=== PATIENT | male | born 1940 | race Caucasian/White ===

== ENCOUNTER 2017-03-05 14:32 | Inpatient (IN) ==
[2017-03-05] MEDS ORDERED: LABETALOL IV ONE (14:56)
[2017-03-05] MEDS ORDERED: ASPIRIN PO STA (14:56)
[2017-03-05 15:11] LABS: MANUAL DIFF NEEDED? NO
[2017-03-05 15:23] LABS: CALCIUM 8.9 mg/dL (8.8-10.2); MAGNESIUM 1.2 mg/dL (1.5-2.7); POTASSIUM 4.6 mmol/L (3.5-5.1); TOTAL BILIRUBIN 0.6 mg/dL (0.20-1.00); TOTAL PROTEIN 7.1 g/dL (6.3-8.3)
[2017-03-05 15:33] LABS: BASO% 0.4 % (0.0-0.8); EOS# 0.14 X1000 (0.0-0.7); EOS% 1.5 % (0.0-10.0); HEMATOCRIT 41.7 % (42.0-52.0); IMM GRAN# 0.03 X1000 (0.0-0.04); IMM GRAN% 0.3 % (0.0-0.5); LYMPH# 0.81 X1000 (1.2-3.4); LYMPH% 8.4 % (20.5-51.1); MCV 83.4 FL (81-99); MONO% 9.3 % (1.7-9.3); NEUT% 80.1 % (42.2-75.2); PLT 253 X1000 (130-400)
[2017-03-05 15:59] LABS: INR 1.01 (0.86-1.15); PROTIME 13.6 Seconds (12.1-15.5); PTT PL 30.9 Seconds (22.6-43.9)
[2017-03-05] MEDS ORDERED: APRESOLINE IV ONE (16:08)
--- NOTE | 2017-03-05 16:21 | EKG Report ---
Test Performed on : 03/05/2017 2:33:44 PM Test Reason : CHEST PAIN Blood Pressure : / mmHG Vent. Rate : 096 BPM Atrial Rate : 096 BPM P-R Int : 202 ms QRS Dur : 096 ms QT Int : 360 ms P-R-T Axes : 036 -67 084 degrees QTc Int : 454 ms Normal sinus rhythm. Left axis deviation Nonspecific T wave abnormality Abnormal ECG When compared with ECG of 27-FEB-2012 12:21, IN interval has decreased QRS axis shifted left Unconfirmed Result
--- NOTE | 2017-03-05 16:33 | Diag Imaging Result Document ---
PROCEDURE NAME: CHEST-2 VIEWS - 03/05/2017 FRONTAL AND LATERAL CHEST, 2 VIEWS: FINDINGS: No comparison films. The lungs are hyperexpanded. Mild increased AP diameter to the chest. The pulmonary vessels are small. The heart is not enlarged. Mild increased markings in the right base. No consolidation. IMPRESSION: 1. Emphysema. 2. Atelectasis or fibrosis on the right.
--- NOTE | 2017-03-05 16:58 | PROVIDER DOCUMENTATION ---
This chart was entered by Faizan Armendariz Scribe, acting as scribe for Abbie Cole MD. HPI-Chest Pain - General Chief Complaint: Chest Pain Stated Complaint: CHEST PAIN Time Seen by Provider: 03/05/17 14:47 Source: patient Allergies/Adverse Reactions: Patient Allergies Allergy/AdvReac Type Severity Reaction Status Date / Time No Known Allergies Allergy Verified 03/05/17 14:41 Home Medications: Home Medication List Medication Instructions Recorded Confirmed Last Taken Type Aspirin 81 mg PO DAILY 04/30/14 03/05/17 Unknown History Carvedilol [Coreg] 6.5 mg PO BID 04/30/14 03/05/17 Unknown History Isosorbide Mononitrate 60 mg PO DAILY 04/30/14 03/05/17 Unknown History Losartan/Hydrochlorothiazide 100 mg PO DAILY 04/30/14 03/05/17 Unknown History [Losartan-Hctz 100-25 mg Tab] Rosuvastatin Calcium [Crestor] 10 mg PO DAILY 04/30/14 03/05/17 Unknown History Sitagliptin Phosphate [Januvia] 100 mg PO DAILY 04/30/14 03/05/17 Unknown History Clonidine HCl [Clonidine HCl] 0.2 mg PO BID 03/05/17 03/05/17 Unknown History Clopidogrel Bisulfate [Clopidogrel] 75 mg PO HS 03/05/17 03/05/17 Unknown History Metformin [Glucophage] 1,000 mg PO BID 03/05/17 03/05/17 Unknown History - History of Present Illness-CP Nature of Presenting Problem: patient is a 76 y/o M that presents to the Er with substernal chest pain. describes it as dull pain. Symptoms began last pm. patient has shortness of breath but no n/v, back pain, or palpitations. history of CAD,HTN, and type 2 diabetes. patient had last cardiac cath last april in which his Circumflex was stented. Location: reports: substernal Chest Pain Radiation: reports: no radiation Quality of Pain: reports: dull Severity in ED: mild, moderate Onset/Duration: abrupt, last night Timing: still present, improving, constant Context/Activities at Onset: reports: none Modifying Factors: improves with: nothing Associated Symptoms: reports: shortness of breath, weakness. denies: back pain , edema, fever/chills, nausea, vomiting Nitro Today/Relief: no nitro taken today Aspirin Treatment Today: 325 mg x 1, provided by ED Prior Chest Pain/Cardiac Workup: reports: cardiac cath (1 year ago, stent to circumflex) Similar Symptoms Previously?: Yes Recently Seen Here or By Another Healthcare Provider: No Review of Systems - Adult - REVIEW OF SYSTEMS - ADULT Constitutional: denies: chills, fever Eyes: reports: no symptoms reported Ears, Nose, Mouth & Throat: reports: no symptoms reported Cardiovascular: reports: chest pain. denies: orthopnea, palpitations, syncope Respiratory: reports: shortness of breath. denies: cough, wheezing Gastrointestinal: denies: abdominal pain, nausea, vomiting Genitourinary: reports: no symptoms reported Musculoskeletal: reports: back pain, muscle weakness. denies: joint pain Integumentary: reports: no symptoms reported Neurological: reports: no symptoms reported Psychiatric: reports: no symptoms reported Endocrine: reports: no symptoms reported Hematologic/Lymphatic: reports: no symptoms reported Allergic/Immunologic: reports: no symptoms reported All Other Systems: Reviewed and Negative Past History - Adult - PAST MEDICAL HISTORY-ADULT Review of Records: reports: Old Records Reviewed, Nursing Assessment Review, Medications Reviewed Cardiovascular: reports: CAD, HTN Neurological: reports: CVA Endocrine/Immune: reports: Diabetes Diabetes Type: Type 2 Diabetes controlled by:: PO Meds - PRIOR SURGERIES/PROCEDURES Surgical/Procedure History: reports: cardiac stent, hernia repair - IMMUNIZATION STATUS Childhood Immunizations: See Nurse Assessment Flu Vaccine: See Nurse Assessment - FAMILY HISTORY Family History: reviewed, not pertinent - SOCIAL HISTORY Smoking: quit greater than 1 year, cigarettes Alcohol Use Frequency: occasionally Living Situation: family Physical Exam-General - PHYSICAL EXAM-ADULT Initial Vital Signs Reviewed: Yes - CONSTITUTIONAL General Appearance: alert, no apparent distress - EYES Eyes: PERRL/EOMI, pink conjunctivae - HEAD, EARS, NOSE, MOUTH & THROAT HENMT: normocephalic/atraumatic, moist mucous membranes, normal ENT inspection - NECK Neck: full range of motion, normal inspection - RESPIRATORY Respiratory: chest non-tender, lungs clear, normal breath sounds, no respiratory distress, no accessory muscle use - CARDIOVASCULAR Cardiovascular: regular rate, rhythm, no edema, no murmur - GASTROINTESTINAL (ABDOMEN) Abdominal Exam: normal bowel sounds, non tender, soft, no organomegaly, no pulsatile mass - MUSCULOSKELETAL Extremity: normal range of motion, normal inspection, no pedal edema, no calf tenderness - SKIN Integumentary: normal color, warm/dry - NEUROLOGIC Neurologic: grossly normal, no motor/sensory deficits - PSYCHIATRIC Psych/Mental Status: normal mood/affect, normal thought content, normal thought process, oriented x 3 Progress - PLAN OF CARE/RESULTS Progress/Plan/Lab Results: Vital Signs - 8 hr 03/05/17 14:37 03/05/17 15:00 03/05/17 15:15 Temperature 97.5 F L Pulse Rate 98 H 89 93 H Respiratory Rate 20 21 17 Blood Pressure 231/112 148/78 182/94 O2 Sat by Pulse Oximetry 96 92 L 92 L 03/05/17 15:30 03/05/17 15:45 Temperature Pulse Rate 92 H 79 Respiratory Rate 19 20 Blood Pressure 208/102 193/85 O2 Sat by Pulse Oximetry 91 L 90 L Laboratory Results - last 24 hr 03/05/17 03/05/17 03/05/17 14:30 14:30 14:30 WBC RBC Hgb Hct MCV MCH MCHC RDW Std Deviation Plt Count MPV Immature Gran % (Auto) Neut % (Auto) Lymph % (Auto) [place] % (Auto) Eos % (Auto) Baso % (Auto) Immature Gran # (Auto) Neut # (Auto) Lymph # (Auto) [place] # (Auto) Eos # (Auto) Baso # (Auto) PT INR APTT (Factor Assay) D-Dimer Sodium 129 L Potassium 4.6 Chloride 94 L Carbon Dioxide 19 L Anion Gap 16 BUN 24 H Creatinine 1.8 H Estimated GFR/1.73 m2 37 BUN/Creatinine Ratio 13 Glucose 202 H Calculated Osmolality 269 Calcium 8.9 Magnesium 1.2 L Total Bilirubin 0.60 AST 12 ALT 12 Alkaline Phosphatase 99 Creatine Kinase 55 Troponin T 0.031 Vhv-E-Sheqiuzgjct Pept 966 H Total Protein 7.1 Albumin 4.0 Globulin 3.0 Albumin/Globulin Ratio 1.0 03/05/17 03/05/17 14:30 14:30 WBC 9.65 RBC 5.00 Hgb 15.0 Hct 41.7 L MCV 83.4 MCH 30.0 MCHC 36.0 RDW Std Deviation 12.8 Plt Count 253 MPV 10.0 Immature Gran % (Auto) 0.3 Neut % (Auto) 80.1 H Lymph % (Auto) 8.4 L [place] % (Auto) 9.3 Eos % (Auto) 1.5 Baso % (Auto) 0.4 Immature Gran # (Auto) 0.03 Neut # (Auto) 7.73 H Lymph # (Auto) 0.81 L [place] # (Auto) 0.90 H Eos # (Auto) 0.14 Baso # (Auto) 0.04 PT 13.6 INR 1.01 APTT (Factor Assay) 30.9 D-Dimer 0.86 H Sodium Potassium Chloride Carbon Dioxide Anion Gap BUN Creatinine Estimated GFR/1.73 m2 BUN/Creatinine Ratio Glucose Calculated Osmolality Calcium Magnesium Total Bilirubin AST ALT Alkaline Phosphatase Creatine Kinase Troponin T Lxr-A-Banjvoiygyv Pept Total Protein Albumin Globulin Albumin/Globulin Ratio Orders Category Date Time Status Cardiac Monitoring DIRECTED Care 03/05/17 14:56 Active Saline Loc NOW Care 03/05/17 14:56 Active CHEST-2 VIEWS [RAD] Stat Exams 03/05/17 14:56 Completed CBC WITH ELECTRONIC DIFF [HEME] Stat Lab 03/05/17 14:30 Completed CK PROFILE [SP CHEM] Stat Lab 03/05/17 14:30 Completed COMPREHENSIVE METABOLIC PANEL [CHEM] Stat Lab 03/05/17 14:[address] D-DIMER [address] [COAG] Stat Lab 03/05/17 14:30 Completed MAGNESIUM [CHEM] Stat Lab 03/05/17 14:30 Completed PRO B-NATRIURETIC PEPTIDE Stat Lab 03/05/17 14:30 Completed PROTIME WITH INR PL [COAG] Stat Lab 03/05/17 14:[address] [COAG] Stat Lab 03/05/17 14:30 Completed TROPONIN T Stat Lab 03/05/17 14:30 Completed Aspirin Med 03/05/17 14:56 Discontinued 325 mg PO STAT STA Cardene 0.1 mg/ml Drip ([facility]) Med 03/05/17 17:00 Ordered Nicardipine 20 mg/Ns [Cardene 20 mg/Ns] 20 mg in 200 ml IV As Directed Hydralazine [Apresoline] Med 03/05/17 16:08 Discontinued 20 mg IV NOW ONE Labetalol Med 03/05/17 14:56 Discontinued 20 mg IV NOW ONE EKG [EKG] Stat Ther 03/05/17 14:56 Draft Result Diagrams: 03/05/17 14:30 03/05/17 14:30 - EKG 1 Time of EKG reading by physician:: 14:33 EKG Read and Signed by:: Abbie Cole EKG Interpretation (*Must complete 3 of following elements*): Abnormal Rate: 96 Rhythm: NSR [place]: left QRS: normal NC Interval: normal ST Wave: non-specific ST changes - XRAY 1 XRAY Study: Chest Impression: Abnormal XRAY Interpretation: emphysema, atelectasis or fibrosis in the R base - CONSULTS/PCP/HOSPITALIST Notification #1 *Consult/PCP/Hospitalist*: Time Discussed: 16:25 Consult Disposition: Admit Departure - Departure Time of Disposition Decision: 16:27 DIAGNOSIS: Chest pain in adult, Hypertensive emergency Disposition: ADMITTED INPATIENT 09 Certified Medical Emergency: Emergent Condition: Stable Referrals and Follow-Ups: Ricky Coughlin MD [Primary Care Provider] - - Critical Care Note This patient required my direct & personal management of CC.: Yes Total Time (mins): 45 Critical Care Statement: This patient required my direct personal management to treat or rule out processes, the absence of which, could potentiallly result in sudden, clinically significant life or limb threatening deterioration. This chart was documented by the indicated scribe, (Faizan Armendariz, Scribe) and accurately reflects the services I performed and decisions made by me, Abbie Cole MD, as attested by the provider's signature.
[2017-03-05] MEDS ORDERED: MAGNESIUM SULFATE 2 GM/S.W.I. 2 GM/50 ML IVPB IV ONE (18:17)
[2017-03-05] MEDS ORDERED: LABETALOL IV PRN (18:23)
[2017-03-05] MEDS: NS 1,000 ML IV SCH (19:45)
[2017-03-05] MEDS: SODIUM CHLORIDE 0.9% INJ SCH (19:52)
[2017-03-05] MEDS: PROTONIX IV SCH (19:52)
[2017-03-05] MEDS: CRESTOR PO SCH (20:28)
[2017-03-05] MEDS: HUMALOG DOSE (PARKWAY) SUBQ SCH (20:28)
[2017-03-05] MEDS: PLAVIX PO SCH (20:29)
[2017-03-05] MEDS: CARDENE 20 MG/NS 20 MG/200 ML PIGGYBACK IV SCH (20:36)
--- NOTE | 2017-03-05 21:54 | HISTORY AND PHYSICAL ---
PRIMARY CARE PHYSICIAN: Ricky Coughlin MD PILOT BOAT OPERATOR: Dr. Massey. CHIEF COMPLAINT: Chest pain and elevated blood pressure. HISTORY OF PRESENT ILLNESS: A 76-year-old white male with known [id number] or resistant hypertension, who presented to the emergency room with 6/10 substernal chest pain, greater than 24 hours, described as dull, associated with mild shortness of breath. The patient denies nausea, vomiting, back pain, palpitations, or increased heart rate. Does note blood pressure is normally in the 150s. Evaluation in the ER, blood pressure was greater than 200 systolic and status post that the patient was admitted for further evaluation. Of note, the patient had been seen by Dr. Massey, his golf technician, with some recent medications changes, of which he states causes blood pressure to be worse. ALLERGIES: No known drug allergies. MEDICATIONS: Include aspirin 81 mg daily, Coreg 6.5 mg p.o. b.i.d., 60 mg p.o. daily, losartan/hydrochlorothiazide 100/25, Crestor 80 mg p.o. daily, Januvia 100 mg p.o. daily, clonidine 0.2 mg p.o. b.i.d., and metformin 1000 mg p.o. b.i.d. REVIEW OF SYSTEMS: Twelve point review of systems pertinent for items mentioned in the HPI. Patient denies abdominal pain, nausea, vomiting, cough, wheezing, orthopnea, syncope or edema. SURGICAL HISTORY: The patient had a cardiac stent placed and hernia repair both remotely. FAMILY HISTORY: Reviewed and not pertinent. SOCIAL HISTORY: The patient is a historical smoker, stating that he quit greater than 1 year ago. Does use alcohol on an infrequent basis currently. Living at home with family and has a contract engineer available. PHYSICAL EXAMINATION: VITAL SIGNS: Shows temperature 97.5 degrees, pulse 98, respirations 17, blood pressure 231/112. O2 saturation of 92% on room air. Recheck of blood pressure was down to 182/94. GENERAL: Plethoric, short of breath, elderly male, mild to moderate distress. CARDIOVASCULAR: Shows bounding pulses at a rate of approximately 94. NECK: No jugular venous distention noted. LUNGS: Clear to auscultation anteriorly. No consolidations. Mild rhonchi in the bilateral bases. ABDOMEN: Soft, nontender, nondistended. Bowel sounds are positive times all 4 quadrants. No hepatomegaly noted. EXTREMITIES: Lower extremities no cyanosis, clubbing, or edema noted. Abnormal pulses noted in the lower extremities. HEENT: Shows clear oropharynx. Slightly injected sclerae bilaterally. Nares are patent with no swelling noted. PSYCH: Normal mood and affect, appropriate. Alert and oriented x3. LABS: WBC is 9.65, with an hemoglobin and hematocrit of 15 and 41, respectively. MCV of 83. Platelets of 253,000. Neutrophils of 80.1, lymphocytes at 8.4. PT/INR within normal limits. D- dimer slightly elevated at 0.86. Sodium 129, with a chloride of 94. BUN of 24, creatinine 1.8. Glucose 202. Magnesium 1.2. B-type natriuretic peptide of 996. Albumin 4.0. Imaging shows chest x-ray performed 03/04/2017; emphysema, atelectasis, and fibrosis on the right; otherwise, within normal limits. Electrocardiogram performed shows nonspecific ST wave abnormality and left axis deviation. ASSESSMENT AND PLAN: A 76-year-old male with: 1. Hypertensive emergency. 2. Resistant hypertension. 3. Hypomagnesemia. 4. Hyponatremia. 5. Acute kidney injury. 6. Moderate dehydration. 7. Hyperglycemia with history of diabetes type 2. 8. Chest pain with troponin x3 negative. PLAN: The patient will be admitted to the ICU in [place]. We placed him on clonidine drip. Labs checked frequently, along with high-volume resuscitation for the fluids, in effort to correct the sodium issue. Patient's electrolytes will be repleted and the patient will be followed along the course today for further evaluation of some underlying causes of the resistant hypertension. CT of the head will be performed to rule out any issues associated with his high temperature or high pressure in a.m., along with echo and questionable CT of abdomen and pelvis if concerns for neuroendocrine tumors are present. Will continue to monitor the patient and follow daily. Will hold deep venous thrombosis prophylaxis at this time due to the increased risk of bleeding. cc: Ricky Coughlin MD
[2017-03-05] MEDS: AMBIEN PO PRN (22:40)
[2017-03-06] MEDS: CARDENE 20 MG/NS 20 MG/200 ML PIGGYBACK IV SCH (00:45)
[2017-03-06 04:58] LABS: BLOOD TYPE ARTERIAL; DRAW SITE R BRACHIAL; METHB 1.3 % (0.0-1.5); O2(CT) 19.7 mL/dL (15.0-23.0); PCO2(98.6) 38 mmHg (35-45); PO2(98.6) 65 mmHg (60-100); SAMPLE BLOOD; SAO2 95.5 % (95.0-100.0); THB 15.3 g/dL (11.5-17.4)
[2017-03-06 05:05] LABS: ALLEN TEST YES; MODALITY CANNULA
[2017-03-06 05:42] LABS: MANUAL DIFF NEEDED? NO
[2017-03-06 05:45] LABS: BASO% 0.2 % (0.0-0.8); EOS# 0.16 X1000 (0.0-0.7); HEMATOCRIT 39.4 % (42.0-52.0); HEMOGLOBIN 14.4 g/dL (14.0-18.0); IMM GRAN# 0.03 X1000 (0.0-0.04); IMM GRAN% 0.4 % (0.0-0.5); LYMPH% 9.9 % (20.5-51.1); MCH 30.2 PG (27-31); MCHC 36.5 g/dL (33-37); MCV 82.6 FL (81-99); MONO# 0.77 X1000 (0.11-0.59); MONO% 9.5 % (1.7-9.3); MPV 9.9 FL (7.4-10.4); PLT 242 X1000 (130-400); RBC 4.77 XMIL (4.7-6.1)
[2017-03-06 05:58] LABS: HEMOGLOBIN A1C 8.4 % (4.8-6.0)
[2017-03-06] MEDS: HUMALOG DOSE (PARKWAY) SUBQ SCH ×4 (06:17→21:12)
[2017-03-06 06:20] LABS: AGAP 13; ALBUMIN 3.5 g/dL (3.5-5.0); ALKALINE PHOSPHATASE 96 U/L (32-122); BUN 21 mg/dL (8-22); CALCIUM 8.3 mg/dL (8.8-10.2); CHLORIDE 97 mmol/L (98-107); COSMO 273; GOT 7 U/L (10-34); GPT 9 U/L (10-44); HDL 27 mg/dL (35-55); LDL 50 mg/dL; MAGNESIUM 2.2 mg/dL (1.5-2.7); POTASSIUM 3.5 mmol/L (3.5-5.1); SODIUM 131 mmol/L (136-145); TCO2 21 mmol/L (25-35); TOTAL PROTEIN 6.1 g/dL (6.3-8.3); TRIGLYCERIDES 153 mg/dL (39-160); VLDL 31 mg/dL
[2017-03-06] MEDS ORDERED: MAGNESIUM SULFATE 2 GM/S.W.I. 2 GM/50 ML IVPB IV ONE (06:41)
[2017-03-06] MEDS ORDERED: POTASSIUM CHLORIDE 20% LIQUID PO ONE (07:45)
--- NOTE | 2017-03-06 07:54 | PROGRESS NOTE ---
DATE: 03/06/2017 PRIMARY CARE PHYSICIAN: Dr. Ricky Coughlin. SUBJECTIVE: Overnight the patient responded well to the Cardene drip. No issues or concerns noted. Did have some difficulties going to sleep. Blood pressure came down to normalization without any need for additional IV medications. PHYSICAL EXAMINATION: Vital Signs: Temperature 98 degrees, pulse 60, respirations 14, blood pressure 139/62, O2 saturation 95% on 2 L nasal cannula. Weight unchanged. I's and O's: Primarily unmeasured. General: Alert and oriented. No acute distress. at bedside. No acute complaints. CV: Regular rate with occasional PVCs. No murmurs, gallops, or rubs. Lungs: Clear to auscultation anteriorly. Abdomen: Soft, nontender, nondistended. Bowel sounds positive. Extremities: Lower extremities show no edema and normal pulses. No longer bounding. LABS: Hemoglobin and hematocrit is 14 and 39 respectively with a normal WBC. Lymphocytes of 9.9. Platelets 242,000. PT and INR within normal limits. ABG shows a normal pH at 7.4, with a PO2 of 65, and oxyhemoglobin at 91.8. Sodium is moving toward normal at 129 to 131 with potassium of 3.5, anion gap 13. Creatinine down from 1.8 to 1.3, glucose ranging 202-232, A1c of 8.4, calcium low at 8.3, magnesium at 2.2, AST and ALT at 7 and 9. Troponin is primary within normal limits, 0.013 and 0.031. BNP down from . Total protein 6.1. Cholesterol within normal limits. TSH and free T4 within normal limits. ASSESSMENT AND PLAN: This is a 76-year-old male with: 1. Hypertensive emergency and acute kidney injury. Responding well to the treatment. Will switch to nifedipine and follow today okay to transfer to general medical floor now that the patient is off the IV drip. Labs pending regarding secondary causes of hypertension. We will continue to follow those labs. 2. Hyponatremia, likely secondary to #1. Continue to follow with IV fluid resuscitation. 3. Electrolyte disturbance. Will replete today and follow up. 4. Chest pain. Troponins are normal and patient no longer complaining of said chest pain. Likely secondary to #1. Continue current therapies. We will continue to monitor the 24 hour urines. Likely discharge Friday p.m. versus Friday a.m. cc: Ricky Coughlin MD
[2017-03-06] MEDS: NS 1,000 ML IV SCH (10:29)
[2017-03-06] MEDS: PROCARDIA PO SCH ×3 (10:29→16:07)
[2017-03-06] MEDS: POTASSIUM CHLORIDE 20% LIQUID ONE ×2 (10:35→12:00)
[2017-03-06] MEDS: MAGNESIUM SULFATE 2 GM/S.W.I. 2 GM/50 ML IVPB ONE ×2 (10:35→11:59)
--- NOTE | 2017-03-06 12:54 | ECHO REPORT ---
ORDER DATE: 03/05/2017 INDICATION: Hypertensive emergency, history of coronary artery disease. FINDINGS: 1. The right atrium is mildly enlarged at 4.2 cm. 2. Trace tricuspid regurgitation. RV systolic pressure of 21. 3. Normal RV size and systolic function. 4. Trace pulmonic insufficiency. 5. Normal left atrial size at 3.9 cm. 6. No mitral prolapse. Mild mitral regurgitation. 7. Normal LV size, end-diastolic dimension of 4.4. Moderate left ventricular hypertrophy with a posterior and interventricular septal wall thickness of 1.6 cm each. Normal LV systolic function. Estimated EF is 60% with normal wall motion. 8. Aortic valve opens well and appears trileaflet. The valve is somewhat sclerotic, but not stenotic. No evidence of insufficiency. 9. Aorta appears normal in visualized segments. 10. No pericardial effusion seen. cc: MD Ricky Harry MD
[2017-03-06] MEDS: PROTONIX IV SCH (18:41)
[2017-03-06] MEDS: SODIUM CHLORIDE 0.9% INJ SCH (18:41)
[2017-03-06] MEDS ORDERED: LASIX IV ONE (18:52)
[2017-03-06] MEDS ORDERED: TYLENOL PO PRN (18:53)
[2017-03-06] MEDS: CRESTOR PO SCH (21:11)
[2017-03-06] MEDS: PLAVIX PO SCH (21:11)
[2017-03-06] MEDS: CATAPRES PO SCH (21:12)
[2017-03-06] MEDS: AMBIEN PO PRN (21:25)
[2017-03-07 06:01] LABS: MANUAL DIFF NEEDED? NO
[2017-03-07] MEDS: HUMALOG DOSE (PARKWAY) SUBQ SCH ×4 (06:03→21:47)
[2017-03-07 06:06] LABS: BASO% 0.4 % (0.0-0.8); EOS# 0.17 X1000 (0.0-0.7); HEMATOCRIT 38.6 % (42.0-52.0); HEMOGLOBIN 13.5 g/dL (14.0-18.0); IMM GRAN# 0.02 X1000 (0.0-0.04); IMM GRAN% 0.2 % (0.0-0.5); LYMPH# 0.58 X1000 (1.2-3.4); MCH 29.7 PG (27-31); MONO# 0.83 X1000 (0.11-0.59); MPV 9.9 FL (7.4-10.4); NEUT% 80.4 % (42.2-75.2); PLT 230 X1000 (130-400); RBC 4.54 XMIL (4.7-6.1)
[2017-03-07 06:56] LABS: ALBUMIN 3.4 g/dL (3.5-5.0); CALCIUM 8.6 mg/dL (8.8-10.2); MAGNESIUM 1.8 mg/dL (1.5-2.7); POTASSIUM 4.1 mmol/L (3.5-5.1); TOTAL BILIRUBIN 0.7 mg/dL (0.20-1.00); TOTAL PROTEIN 6.2 g/dL (6.3-8.3)
--- NOTE | 2017-03-07 08:09 | PROGRESS NOTE ---
DATE: 03/07/2017 PRIMARY CARE PHYSICIAN: Ricky Coughlin MD SUBJECTIVE: Overnight the patient maintained having slightly increased blood pressures, not over 200, but not responding to medications as prescribed. The patient does state that he was having some lung issues related to fluid overload. The fluids have been stopped at that time. PHYSICAL EXAMINATION: Vital Signs: Temperature 97.8 degrees, pulse 86, respirations 18, blood pressure 178/67, and O2 saturation 95% on room air. General: On physical exam, an alert and oriented male, slightly plethoric, in no acute distress. Lungs: Clear to auscultation anteriorly with minimal noted upper extremity breath decrease, but no overt consolidation noted. Cardiovascular: Regular rate with a mild 2/6 systolic ejection murmur noted, otherwise within normal limits. There is no JVD. Abdomen: Soft, nontender, nondistended. Bowel sounds are scant, but present. Extremities: The lower extremities show trace lower extremity edema, not above prior exam. Pulses of the distal extremities are no longer bounding, but are definitely present and 2+. LABORATORY DATA: The labs this a.m. show hemoglobin and hematocrit of 13 and 38, neutrophils at 80.4. Sodium improved to 134, potassium 4.1, anion gap of 13, with a creatinine of 1.3. Glucose ranging from 240 to 232. A1c of 8.4, calcium 8.6. AST and ALT within normal limits. BNP is 903. Albumin at 3.4. TSH within normal limits. The 24-hour urine studies are still pending at this time. They have been received. We will follow regarding the outcome of those labs. ASSESSMENT AND PLAN: A 76-year-old male with: 1. Hypertensive emergency and acute kidney injury, responding well and resolving with treatment. We will maximize nifedipine 3 times daily. Add home medicines, along with the labetalol p.r.n. for any blood pressure over 155. Currently following the labs for secondary cause of hypertension. 2. Hyponatremia, resolving with intravenous fluid resuscitation. One dose of Lasix was given. We will continue to monitor daily. 3. Electrolyte disturbance, repeating. 4. Chest pain, no longer an issue. Mild chest discomfort noted. One dose of Lasix did give an adequate response. We will continue to follow this patient with a Cardiology consultation today. cc: Ricky Coughlin MD
[2017-03-07] MEDS ORDERED: COZAAR PO SCH (09:00)
[2017-03-07] MEDS: PROCARDIA PO SCH ×3 (09:00→17:54)
[2017-03-07] MEDS ORDERED: LOSARTAN PO SCH (09:00)
[2017-03-07] MEDS ORDERED: HYDROCHLOROTHIAZIDE PO SCH ×2 (09:00)
--- NOTE | 2017-03-07 09:09 | Diag Imaging Result Document ---
PROCEDURE NAME: CHEST-PORTABLE - 03/06/2017 PORTABLE CHEST: COMPARISON: 03/05/2017. FINDINGS: Heart size is normal. There is slight subsegmental atelectasis or scarring at the left base. The lungs, otherwise, appear clear. There is no vascular congestion, pleural effusion, or pneumothorax identified. IMPRESSION: Slight subsegmental atelectasis or scarring at left base. No other evidence of acute disease.
[2017-03-07] MEDS: CATAPRES PO SCH ×3 (10:33→22:04)
[2017-03-07] MEDS: LANTUS INSULIN (PARKWAY) SUBQ SCH (10:33)
--- NOTE | 2017-03-07 14:29 | CONSULTATION ---
DATE OF CONSULTATION: 03/07/2017 INDICATION: Hypertension. HISTORY OF PRESENT ILLNESS: Mr. Brooks is a 76-year-old male with a history of hypertension, who presented to the ER. He reports that he had presented to the ER for complaints of his legs and arms feeling like rubber. He denied any episodes of chest discomfort to me. He had no shortness of breath. He said he did not need to check his blood pressure at home because he knows his blood pressure is elevated when this happens. He reports adjustments in his blood pressure medications being done by both his mechanical inspector and his primary care physician. He said recently he has had a reduction in his blood pressure medicine at home with no adjustment in his other medications to increase doses or add in new medications. PAST MEDICAL HISTORY: 1. Notable for hypertension. 2. Coronary artery disease with history of PCI previously. 3. Diabetes. 4. Hyperlipidemia. SOCIAL HISTORY: Patient is not presently smoking. He quit around a year ago. Rare alcohol. His has dementia and lives at a [facility]. FAMILY HISTORY: Significant for hypertension. REVIEW OF SYSTEMS: A 10 system review of systems is negative except for those mentioned in HPI. PHYSICAL EXAMINATION: He is afebrile. Heart rates in 80s to 90s. His systolic blood pressures have been markedly elevated since he has been here. His peak on presentation was 231. His systolics have been anywhere from the 150s to the 200s since then.General: He is in no acute distress. HEENT: Oropharynx is moist. He has normal dentition. His eye examination shows pink conjunctivae, white sclerae. Neck: Examination shows no obvious thyromegaly or thyroid tenderness. Cardiovascular: He is in a regular rate and rhythm. He has no obvious murmurs. He has no S3. He has no lower extremity edema. Chest: Clear bilaterally. He has no increased work of breathing. Abdomen: Soft, nontender, nondistended. He has no obvious organomegaly. Skin Exam: Warm and dry throughout without any rashes. Neurological: He is moving all extremities well. Cranial nerves 2-12 are intact without any sensation deficits. Psychiatric: Alert, oriented, pleasant. Normal mood and affect. PERTINENT DATA: His white count is 8.3, his hematocrit 38.6, his platelet count is 230,000. His sodium is 134, potassium 3.1. His BUN is 16. Creatinine is 1.3. On presentation his sodium is 129. BUN 24, creatinine 1.8. His proBNP was anywhere from the 700s to the 900s. His albumin is 3.4. His troponins are negative. TSH is normal. His free T4 is normal. ASSESSMENT: Hypertension. PLAN: Patient was in the hospital on the . He did not get his home medications nor equivalent doses of new medications the entirety of the 4th thus he was on less than his usual home regimen. Today his regimen includes: 1. Clonidine 0.2 b.i.d. 2. Hydrochlorothiazide 25 daily. 3. Losartan 100 mg daily. 4. Nifedipine 20 mg t.i.d. Presently I am not exactly sure where in the course he is on his adjustments in medications. It seems like he is probably on equivalent doses of medications as he is on an ARB, a calcium channel hui, a diuretic and clonidine. It appears the really the only adjustment in his medications has been from Coreg to nifedipine. I would consider changing the nifedipine over to the long- acting dose at 60 mg daily. I would consider stopping the losartan and placing him on possibly valsartan or Benicar. In addition, you could increase the clonidine to more frequent dosing. Notably, he had some potassiums that were relatively low on presentation. You could consider stopping the hydrochlorothiazide and switching over to Aldactone. I would stop his IV fluids as he does not appear to be hypovolemic. His echocardiogram showed a normal ejection fraction. It was a limited study. He had moderate LVH noted on that study. If you have any further questions regarding this consultation please do not hesitate to give me a call. cc: MD Ricky Harry MD
[2017-03-07] MEDS: SODIUM CHLORIDE 0.9% INJ SCH (17:54)
[2017-03-07] MEDS: PROTONIX IV SCH (17:54)
[2017-03-07] MEDS: PLAVIX PO SCH ×2 (19:54→22:05)
[2017-03-07] MEDS: CRESTOR PO SCH ×2 (19:54→22:04)
[2017-03-07] MEDS: AMBIEN PO PRN (21:51)
[2017-03-08] MEDS: HUMALOG DOSE (PARKWAY) SUBQ SCH (06:09)
[2017-03-08 06:19] LABS: MANUAL DIFF NEEDED? NO
[2017-03-08 06:22] LABS: BASO% 0.5 % (0.0-0.8); EOS# 0.32 X1000 (0.0-0.7); EOS% 4.3 % (0.0-10.0); HEMATOCRIT 40.3 % (42.0-52.0); HEMOGLOBIN 14.2 g/dL (14.0-18.0); IMM GRAN# 0.01 X1000 (0.0-0.04); IMM GRAN% 0.1 % (0.0-0.5); LYMPH# 0.75 X1000 (1.2-3.4); MCH 29.9 PG (27-31); MCHC 35.2 g/dL (33-37); MCV 84.8 FL (81-99); MONO# 0.75 X1000 (0.11-0.59); MPV 9.9 FL (7.4-10.4); NEUT% 75.1 % (42.2-75.2); PLT 238 X1000 (130-400); RBC 4.75 XMIL (4.7-6.1)
[2017-03-08 06:45] LABS: ALBUMIN 3.5 g/dL (3.5-5.0); CALCIUM 8.7 mg/dL (8.8-10.2); MAGNESIUM 1.6 mg/dL (1.5-2.7); POTASSIUM 3.5 mmol/L (3.5-5.1); TOTAL BILIRUBIN 0.6 mg/dL (0.20-1.00); TOTAL PROTEIN 6.4 g/dL (6.3-8.3)
[2017-03-08] MEDS ORDERED: DIOVAN PO SCH (09:00)
[2017-03-08] MEDS ORDERED: ADALAT CC PO SCH (09:00)
[2017-03-08] MEDS ORDERED: ALDACTONE PO SCH (09:00)
[2017-03-08] MEDS ORDERED: CATAPRES PO SCH (09:00)
[2017-03-08 09:45] VITALS: BP 188/86
[2017-03-08] MEDS: LANTUS INSULIN (PARKWAY) SUBQ SCH (11:35)
[2017-03-08] MEDS ORDERED: PROTONIX PO SCH (21:00)
--- NOTE | 2017-03-08 22:17 | DISCHARGE SUMMARY ---
ADMISSION DATE: 03/05/2017 DISCHARGE DATE: 03/08/2017 PCP: Dr. Ricky Coughlin. CONSULTS: Dr. Celio Pacheco, cardiology. CHIEF COMPLAINT: Chest pain and elevated blood pressure. CARDIOLOGY OUTPATIENT: Dr. Whatley. HISTORY OF PRESENT ILLNESS: In brief a 76-year-old white male with known difficult to control/resistant hypertension presented to the emergency room with 6/10 substernal chest pain greater than 24 hours described as dull, mild shortness of breath. Systolic blood pressure greater than 210. The patient had recently been seen by the retail pharmacy technician with mild medication changes status post blood pressure was noted to be worsened. PROBLEM LIST ON DISCHARGE: Includes. 1. Hypertensive emergency. 2. Resistant hypertension. 3. Hypomagnesemia. 4. Hyponatremia. 5. Acute kidney injury. 6. Moderate dehydration. 7. Hyperglycemia with history of diabetes type 2. 8. Chest pain atypical with troponins times 3 negative and normal echocardiogram. LABS: During the course of therapy show WBC of 7.47 with an hemoglobin and hematocrit of 14 and 40 respectively, MCV of 84.8, platelets normal, neutrophils down from 80.1 down to 75.1. D-dimer originally 0.86, PT/INR within normal limits. ABG normal. Ionized calcium 1.23, sodium 137 up from 129, carbon dioxide 22, creatinine 1.2 down from 1.8, POC glucose ranging from 166 to 202, hemoglobin A1c of 8.4, calcium 8.7-8.9, magnesium 1.2 up to 1.8, troponin times 3 negative. BNP from 704 to 966, albumin 3.5, triglycerides 153, total cholesterol 108, LDL 50, HDL 27, TSH 0.74 with a free T4 1.66, PTH intact 36. Urine random sodium 106 and urine sodium 24 hours within normal limits. The patient had a chest x-ray performed 03/06/2017 that showed slight subsegmental atelectasis with left scarring in the base, no vascular congestion, no pleural effusions, no pneumothorax noted per my unofficial read. Echocardiogram performed 03/05/2017 shows mildly enlarged right atrium 4.2 cm, tricuspid regurgitation, RV systolic pressure 21, trace pulmonic insufficiency, normal LV size with moderate left ventricular hypertrophy, posterior image ventricular septal wall thickness of 1.6, ejection fraction of 60% with a slightly sclerotic aortic valve. HOSPITAL COURSE: Patient was admitted to general medical floor, treated with IV fluid resuscitation for the VALERIA along with IV labetalol and hydralazine patient was placed in the ICU the 1st day of service to be put on a Cardene drip with which he responded well and patient been switched over to p.o. medications with an overall reconstruction on his home medication regimen for his resistant hypertension. Patient responded well, did have some slight dizziness, cardiology was consulted and had some hotel assistant manager in the redirection of home medication list. MEDICATIONS: Please refer to medication reconciliation order form. The patient will be given new prescriptions and also have an updated medication list that has been described to him. Patient be discharged today to home in stable condition with close followup in my office in approximately [address] Chacorta fowler. We will evaluate need possible for local cardiology to assist in his resistant hypertension. cc: Ricky Coughlin MD
== END 2017-03-08 11:52 | disposition home or self-care (01) ==
LOC: P.ED 14:32 → P.ICU 17:32 → P.MEDSURG 03-06 12:10
PROVIDERS: ADMIT Family Medicine; ATTEND Family Medicine